=== PATIENT | female | born 1960 | race African-American/Black ===

== ENCOUNTER 2022-05-28 13:17 | Emergency (ER) | payer MEDICAID, OTHER ==
[~2022-05-28] VITALS: Ht 154.9 cm; Wt 77.0 kg
[2022-05-28 14:43] VITALS: BP 132/75
[2022-05-28] MEDS ORDERED: ACETAMINOPHEN 500MG TABLET PO ONE (15:00)
[2022-05-28] MEDS ORDERED: MECLIZINE 25MG TABLET PO ONE (15:15)
[2022-05-28] MEDS ORDERED: ACET-2708 MT (16:03)
[2022-05-28] MEDS ORDERED: MECL-159 MT (16:05)
== END 2022-05-28 16:37 | disposition home or self-care (01) ==
LOC: ER 13:17
DX: S09.8XXA Other specified injuries of head, initial encounter (principal); M25.562 Pain in left knee; F41.0 Panic disorder [episodic paroxysmal anxiety]; M19.90 Unspecified osteoarthritis, unspecified site; I10 Essential (primary) hypertension; Z98.890 Other specified postprocedural states; Y08.89XA Assault by other specified means, initial encounter; Y93.89 Activity, other specified; Y92.238 Other place in hospital as the place of occurrence of the external cause; Y99.8 Other external cause status
CPT/HCPCS: 70450; 73562; 99284; J8597

== ENCOUNTER 2024-09-08 15:56 | Emergency (ER) | payer OTHER ==
[~2024-09-08] VITALS: Ht 167.6 cm; Wt 59.0 kg
[~2024-09-08 15:56] MED LIST: ACET-2708 MT; MECL-299 MT
[2024-09-08 15:58] VITALS: O2SAT 98
[2024-09-08] MEDS: SODIUM CHLORIDE 0.9% 1,000 ML IV ONE (16:44)
[2024-09-08 16:53] LABS: CHLORIDE 112 mEq/L (98-107); POTASSIUM 3.7 mEq/L (3.5-5.1); SODIUM 144 mEq/L (136-145)
[2024-09-08 16:55] LABS: CALCIUM 8.2 mg/dL (8.7-10.4); CARBON DIOXIDE 25 mEq/L (21-32)
[2024-09-08 16:59] LABS: CREATININE 0.8 mg/dL (0.6-1.0)
[2024-09-08 17:00] LABS: GLUCOSE 91 mg/dL (70-105); TROPONIN I HIGH SENSITIVITY 17 ng/L (3.0-34); UREA NITROGEN BLOOD 8 mg/dL (9-23)
[2024-09-08] MEDS: HYDROCODONE/ACETAMINOPHEN 5/325MG TABLET PO ONE (17:05)
[2024-09-08 17:45] VITALS: BP 142/97; PULSE 84; RESP 18; TEMP 36.9; O2SAT 99
== END 2024-09-08 17:51 | disposition home or self-care (01) ==
LOC: ER 15:56
DX: I47.10 Supraventricular tachycardia, unspecified (principal); I10 Essential (primary) hypertension; Z88.5 Allergy status to narcotic agent; Z98.890 Other specified postprocedural states
CPT/HCPCS: 99285; 96360; 71045; 80048; 84484; 36415; 93005; J7030